=== PATIENT | male | born 1990 | race Caucasian/White ===

== ENCOUNTER 2024-02-18 16:32 | Inpatient (IN) | payer OTHER ==
[2024-02-18 17:31] VITALS: RESP 18; BMI 24.7
[2024-02-18] MEDS ORDERED: ACETAMINOPHEN 325 MG TABLET (FP) PO PRN (20:33)
[2024-02-18] MEDS ORDERED: guaiFENesin 600 MG TABLET.ER (FP) PO PRN (20:33)
[2024-02-18] MEDS ORDERED: POLYETHYLENE GLYCOL (HEALTHYLAX) 3350 17 GM PACKET PO PRN (20:33)
[2024-02-18] MEDS ORDERED: MAGNESIUM HYDROX 2400MG/30ML ORAL SUSPENSION 30 ML CUP PO PRN (20:33)
[2024-02-18] MEDS ORDERED: DOCUSATE SODIUM 100 MG CAPSULE (FP) PO PRN (20:33)
[2024-02-18] MEDS ORDERED: IBUPROFEN 400 MG TABLET (FP) PO PRN (20:33)
[2024-02-18] MEDS ORDERED: IBUPROFEN 600 MG TABLET (FP) PO PRN (20:33)
[2024-02-18] MEDS ORDERED: BENZONATATE 200 MG CAPSULE PO PRN (20:33)
[2024-02-18] MEDS ORDERED: LOPERAMIDE HCL 2 MG CAPSULE PO PRN (20:33)
[2024-02-18] MEDS ORDERED: MAG HYDROX/AL HYDROX/SIMETH 30 ML UNIT-DOSE CUP PO PRN (20:33)
[2024-02-18] MEDS ORDERED: BENZOCAINE/MENTHOL (CHLORASEPTIC ) LOZENGE MM PRN (20:33)
[2024-02-18] MEDS ORDERED: TUBERCULIN PPD 5 TU/0.1ML VIAL ID ONE (21:46)
[2024-02-18] MEDS: MELATONIN 5 MG TABLETS PO SCH (21:59)
[2024-02-18] MEDS: THIAMINE HCL 100 MG TABLET (FP) PO SCH (21:59)
[2024-02-19] MEDS: TUBERCULIN PPD 5 TU/0.1ML SYRINGE (IN PATIENT USE ONLY) ID ONE
[2024-02-19] MEDS: ONDANSETRON *ODT* 4 MG TABLET SL PRN (06:22)
[2024-02-19] MEDS: PRENATAL VITAMINS W/ FOLIC ACID TABLET (FP) PO SCH (10:19)
[2024-02-19 11:58] LABS: HEMATOCRIT 47.9 % (35.4-49); MCH 31.7 pg (25.7-33.7); MCHC 35.4 g/dl (32.0-35.9); MEAN CELL VOLUME 89.6 fl (80-96); MEAN PLT VOLUME 7.4 fl (7.5-11.1); PLATELET COUNT 352 10^3/uL (134-434); RBC 5.35 M/mm3 (4.00-5.60); RDW 13.3 % (11.9-15.9)
[2024-02-19 12:28] LABS: ALBUMIN 4.1 g/dl (3.4-5.0); CALCIUM 9.4 mg/dL (8.5-10.1)
[2024-02-19 12:29] LABS: BLOOD UREA NITROGEN 11.3 mg/dL (7-18); CREATININE 0.9 mg/dL (0.55-1.3)
[2024-02-19 12:31] LABS: BILIRUBIN,TOTAL 1.2 mg/dL (0.2-1); TOT PROT 7.7 g/dl (6.4-8.2)
[2024-02-19 12:37] LABS: SYPHILIS W/ RPR CONF NON-REACTIVE (NONREACTIVE)
[2024-02-19] MEDS: NICOTINE POLACRILEX 2 MG GUM BUC PRN (17:39)
[2024-02-19] MEDS: NICOTINE POLACRILEX 2 MG LOZENGE BC PRN (21:37)
[2024-02-20] MEDS: hydrOXYzine PAMOATE 25 MG CAPSULE (FP) PO PRN (01:14)
[2024-02-20 06:34] VITALS: BP 134/91; PULSE 65; TEMP 97.5
[2024-02-20 08:58] LABS: URINE APPEARANCE TURBID; URINE BILIRUBIN NEGATIVE (NEGATIVE); URINE COLOR YELLOW; URINE GLUCOSE (UA) NEGATIVE (NEGATIVE); URINE KETONE NEGATIVE (NEGATIVE); URINE LEUK ESTERASE NEGATIVE (NEGATIVE); URINE NITRITE NEGATIVE (NEGATIVE); URINE PROTEIN NEGATIVE (NEGATIVE)
== END 2024-02-20 11:08 | disposition home or self-care (01) | DRG 772 ==
LOC: YASAS 16:32 → Y3W 21:25
PROVIDERS: ADMIT Allergy & Immunology; ATTEND Psychiatry & Neurology Pain Medicine
PROC: HZ42ZZZ Group Counseling for Substance Abuse Treatment, Cognitive-Behavioral (ICD-10-PCS; principal; 2024-02-18)
DX: F14.20 Cocaine dependence, uncomplicated (principal); F12.20 Cannabis dependence, uncomplicated; Z72.0 Tobacco use; Z28.310 Unvaccinated for COVID-19; Z28.9 Immunization not carried out for unspecified reason; Z88.8 Allergy status to other drugs, medicaments and biological substances
CPT/HCPCS: 36415; 80053; 81003; 85027; 86780; 86803; 93005; 93010; Q0162